=== PATIENT | male | born 1955 | race African-American/Black ===

== ENCOUNTER 2017-03-10 21:59 | Emergency (ER) | payer SELFPAY ==
[~2017-03-10] VITALS: Ht 175.3 cm; Wt 99.8 kg
--- NOTE | 2017-03-10 22:37 | EKG ---
[address] [address] Test Date: 2017-03-10 Test Time: 22:33:36 Pat Name: ALMAZ DOTY Department: Room: Gender: M Lap Regulator: ARELI : 1955 Requested By: VANESSA FAROOQ Order Number: [id number] Reading MD: Measurements Intervals [place] Rate: 72 P: 52 TN: 142 QRS: 50 QRSD: 90 T: 59 QT: 392 QTc: 431 Interpretive Statements SINUS RHYTHM NORMAL ECG RI6.01 No previous ECG available for comparison
--- NOTE | 2017-03-10 23:14 | RAD ---
Indication: Altered mental status and headache. History of traumatic brain injury Technique: Noncontrast CT head was obtained. No comparison is available. One or more of the following individualized dose reduction techniques were utilized for this examination: 1. Automated exposure control 2. Adjustment of the mA and/or kV according to patient size 3. Use of iterative reconstruction technique Findings: Prominence of the ventricles and sulci is upper limit of normal for age. There is no acute intracranial hemorrhage or extra-axial fluid collection. There is no mass effect or midline shift. Degroot-white differentiation is preserved. There are vascular calcifications. There is no depressed skull fracture. The included paranasal sinuses and mastoid air cells are clear. IMPRESSION: No acute intracranial findings. Electronically signed by: Dillon Parrish MD (03/10/2017 11:10 PM) [facility]
[2017-03-10] MEDS ORDERED: cloNIDine HCL 0.1 MG TABLET PO ONE (23:15)
--- NOTE | 2017-03-10 23:35 | ED.ADGEN ---
Past History Past Medical History: Asthma, Diabetes, High Cholesterol, Hypertension, Seizure , Other Past Surgical History: No Surgical History Alcohol Use: Occasionally Drug Use: None Adult General Chief Complaint Chief Complaint Multiple chronic medical complaints HPI HPI Patient is a 61-year-old homeless AA medical. Injury, delusions, diabetes, who is currently traveling through the area on route to [place] who presents with request for evaluation of his multiple chronic medical conditions. Patient reports delusions. Reports pearly controlled diabetes, reports posterior sinus toe. Patient scarring from [place] on his way to [place]. He does not have family in the area. Patient was at [facility] earlier today. Denies SI.[] Review of Systems Review of Systems Review symptoms as per history of present illness. All other review symptoms negative. Current Medications Current Medications Current Medications Medications (Trade) Dose Ordered Sig/Sinan Start Time Stop Time Status Last Admin Dose Admin Clonidine HCl (Catapres) 0.2 mg 1X ONCE 03/10/17 23:15 03/10/17 23:22 DC Allergies Allergies Allergies Coded Allergies Type Severity Reaction Last Updated Verified peanut Allergy Severe 03/10/17 Yes Penicillins Allergy Intermediate 03/10/17 Yes Physical Exam Physical Exam Constitutional: Well developed, well nourished, no acute distress, non-toxic appearance. [] HENT: Normocephalic, atraumatic, bilateral external ears normal, oropharynx moist, no oral exudates, nose normal. [] Eyes: PERRLA, EOMI, conjunctiva normal, no discharge. [] Neck: Normal range of motion, no tenderness, supple, no stridor. [] Cardiovascular:Heart rate regular rhythm, no murmur [] Lungs & Thorax: Bilateral breath sounds clear to auscultation [] Abdomen: Bowel sounds normal, soft, no tenderness. [] Skin: Warm, dry, no erythema, no rash. [] Back: No tenderness, no CVA tenderness. [] Extremities: No tenderness, no cyanosis, no clubbing, ROM intact, no edema. [] Neurologic: Alert and oriented X 2, normal motor function, normal sensory function, no focal deficits noted. [] Psychologic: Affect, flat. [] Current Patient Data Vital Signs Vital Signs Date Time Temp Pulse Resp B/P (MAP) Pulse Ox O2 Delivery O2 Flow Rate FiO2 03/10/17 22:10 98.3 68 20 97 Room Air Lab Results Laboratory Tests Test 03/10/17 22:41 03/10/17 23:30 Glucose (Fingerstick) 277 mg/dL (70-99) H White Blood Count 5.3 x10^3/uL (4.0-11.0) Red Blood Count 4.43 x10^6/uL (4.30-5.70) Hemoglobin 13.2 g/dL (13.0-17.5) Hematocrit 38.0 % (39.0-53.0) L Mean Corpuscular Volume 86 fL (79-100) Mean Corpuscular Hemoglobin 30 pg (25-35) Mean Corpuscular Hemoglobin Concent 35 g/dL (31-37) Red Cell Distribution Width 12.9 % (11.5-14.5) Platelet Count 192 x10^3/uL (140-400) Neutrophils (%) (Auto) 34 % (31-73) Lymphocytes (%) (Auto) 49 % (24-48) H Monocytes (%) (Auto) 11 % (0-9) H Eosinophils (%) (Auto) 6 % (0-3) H Basophils (%) (Auto) 0 % (0-3) Neutrophils # (Auto) 1.8 x10^3uL (1.8-7.7) Lymphocytes # (Auto) 2.6 x10^3/uL (1.0-4.8) Monocytes # (Auto) 0.6 x10^3/uL (0.0-1.1) Eosinophils # (Auto) 0.3 x10^3/uL (0.0-0.7) Basophils # (Auto) 0.0 x10^3/uL (0.0-0.2) Sodium Level 138 mmol/L (136-145) Potassium Level 3.5 mmol/L (3.5-5.1) Chloride Level 103 mmol/L (98-107) Carbon Dioxide Level 26 mmol/L (21-32) Anion Gap 9 (6-14) Blood Urea Nitrogen 11 mg/dL (8-26) Creatinine 0.8 mg/dL (0.7-1.3) Estimated GFR (Cockcroft-Gault) 119.7 BUN/Creatinine Ratio 14 (6-20) Glucose Level 273 mg/dL (70-99) H Calcium Level 8.5 mg/dL (8.5-10.1) Total Bilirubin 0.1 mg/dL (0.2-1.0) L Aspartate Amino Transferase (AST) 32 U/L (15-37) Alanine Aminotransferase (ALT) 59 U/L (16-63) Alkaline Phosphatase 120 U/L (46-116) H Total Protein 6.8 g/dL (6.4-8.2) Albumin 3.4 g/dL (3.4-5.0) Albumin/Globulin Ratio 1.0 (1.0-1.7) Ethyl Alcohol Level < 10 mg/dL (0-10) EKG EKG [EKG: Sinus rhythm, rate 72, no acute ST-T wave changes.] Radiology/Procedures Radiology/Procedures [Chest x-ray: No acute cardiopulmonary disease on preliminary ED read CT head: No acute intracranial findings per radiology report] Course & Med Decision Making Course & Med Decision Making Pertinent Labs and Imaging studies reviewed. (See chart for details) [Patient presents for evaluation of multiple medical complaints. With exception blisters to his foot, all of these medical complaints appear to be chronic. Patient uncooperative with staff. He is requesting light to be turned off and does not want to be disturbed. Although patient has multiple medical conditions which on addressed, I suspect his reason for coming in the emergency department this evening is primarily for a place to sleep with medical care being secondary ] Final Impression Final Impression [1. Hyperglycemia 2. h/o traumatic brain injury ] Problems: Dragon Disclaimer Dragon Disclaimer This electronic medical record was generated, in whole or in part, using a voice recognition dictation system. VANESSA FAROOQ DO Mar 10, 2017 23:35
[2017-03-10 23:45] LABS: BASO % 0 % (0-3); EOS # 0.3 x10^3/uL (0.0-0.7); EOS % 6 % (0-3); HEMOGLOBIN 13.2 g/dL (13.0-17.5); LYMPH # 2.6 x10^3/uL (1.0-4.8); LYMPH % 49 % (24-48); MEAN CORPUSCULAR HEMOGLOBIN 30 pg (25-35); MEAN CORPUSCULAR HGB CONC 35 g/dL (31-37); MEAN CORPUSCULAR VOLUME 86 fL (79-100); MONO # 0.6 x10^3/uL (0.0-1.1); MONO % 11 % (0-9); NEUT # 1.8 x10^3uL (1.8-7.7); NEUT % 34 % (31-73); PLATELET COUNT 192 x10^3/uL (140-400); RED BLOOD COUNT 4.43 x10^6/uL (4.30-5.70); RED CELL DISTRIBUTION WIDTH 12.9 % (11.5-14.5); WHITE BLOOD COUNT 5.3 x10^3/uL (4.0-11.0)
[2017-03-10 23:59] LABS: ALBUMIN 3.4 g/dL (3.4-5.0); CALCIUM 8.5 mg/dL (8.5-10.1); CREATININE 0.8 mg/dL (0.7-1.3); GFR 119.7; POTASSIUM 3.5 mmol/L (3.5-5.1); TOTAL BILIRUBIN 0.1 mg/dL (0.2-1.0); TOTAL PROTEIN 6.8 g/dL (6.4-8.2)
[2017-03-11 00:30] VITALS: BP 169/88
--- NOTE | 2017-03-11 08:20 | RAD ---
Portable AP chest. History: Short of air AP view was taken of the chest. Lungs are clear. Heart is normal in size without heart failure. There is no effusion. Impression: 1. No acute chest disease.
== END 2017-03-11 00:35 | disposition home or self-care (01) ==
LOC: ER 21:59
DX: E11.65 Type 2 diabetes mellitus with hyperglycemia (principal); Z88.0 Allergy status to penicillin; Z87.820 Personal history of traumatic brain injury; E78.00 Pure hypercholesterolemia, unspecified; I10 Essential (primary) hypertension; J45.909 Unspecified asthma, uncomplicated
CPT/HCPCS: 36415; 70450; 71010; 80053; 82947; 85025; 93005; 99285; G0480